=== PATIENT | female | born 1975 | race African-American/Black ===

== ENCOUNTER 2022-10-12 19:43 | Inpatient (IN) | payer MEDICAID, OTHER ==
[~2022-10-12] VITALS: Ht 167.6 cm; Wt 63.2 kg
[2022-10-12 20:21] LABS: Mean Corpuscular Hemoglobin 12.9 pg (28.0-32.0)
[2022-10-12 20:24] LABS: Hematocrit 20.3 % (36.0-46.0); Mean Corpuscular Hgb Conc. 26.2 g/dL (32.0-36.0); Mean Corpuscular Volume 49.5 fL (80.0-100.0); White Blood Cell 7.7 10^3/uL (4.4-10.8)
[2022-10-12 20:30] LABS: Hemoglobin 5.3 g/dL (12.2-16.2)
[2022-10-12 20:31] LABS: Band Neutrophils % (manual) 0; Basophils % (manual) 0 (0.0-2.0); Blast Cells 0; Metamyelocytes % 0; Myelocytes % 0; Promyelocytes % 0; Reactive Lymphocytes 0
[2022-10-12 20:45] LABS: Albumin 3.8 g/dL (3.4-5.0); Calcium 8.9 mg/dL (8.5-10.1); Potassium 3.7 mmol/L (3.5-5.1)
[2022-10-12 20:49] LABS: BUN/Creatinine Ratio 11.3; Bilirubin, Total 0.5 mg/dL (0.2-1.0); Total Protein 7.6 g/dL (6.4-8.2)
[2022-10-12] MEDS ORDERED: ONDANSETRON HCL 4 MG/2 ML VIAL IV PRN (21:45)
[2022-10-12] MEDS ORDERED: DOCUSATE SOD 100 MG CAP PO PRN (21:45)
[2022-10-12] MEDS ORDERED: ACETAMINOPHEN 325 MG TAB PO PRN (21:45)
[2022-10-12 22:40] VITALS: BP 126/69
[2022-10-12 22:45] LABS: Eosinophils % (manual) 2 (0-7); Lymphocytes % (manual) 37 (10.0-50.0); Monocytes % (manual) 6 (0-12)
[2022-10-12 22:55] VITALS: BP 117/72
[2022-10-13] VITALS (9 sets, daily range): BP systolic 99–126; BP diastolic 52–69
[2022-10-13 04:53] LABS: Basophils # (auto) 0.2 10 ^3/uL (0-0.2); Basophils % (auto) 2.6 % (0.0-2.0); Eosinophils # (auto) 0.2 10 ^3/uL (0-0.8); Eosinophils % (auto) 3.5 % (0.0-7.0); Hematocrit 25.4 % (36.0-46.0); Hemoglobin 7.3 g/dL (12.2-16.2); Lymphocytes # (auto) 2.8 10 ^3/uL (0.4-5.4); Lymphocytes % (auto) 45.1 % (10.0-50.0); Mean Corpuscular Hemoglobin 16.2 pg (28.0-32.0); Mean Corpuscular Hgb Conc. 28.5 g/dL (32.0-36.0); Mean Corpuscular Volume 56.8 fL (80.0-100.0); Monocytes # (auto) 0.3 10 ^3/uL (0-1.3); Monocytes % (auto) 4.8 % (0.0-12.0); Neutrophils # (auto) 2.8 10 ^3/uL (1.6-8.6); Nucleated Red Blood Cells % 0.6 %; Red Blood Cells 4.47 10^6/uL (4.0-5.20); White Blood Cell 6.3 10^3/uL (4.4-10.8)
[2022-10-13 04:54] LABS: Red Cell Distribution Width 32.6 % (11.8-14.3)
[2022-10-13 05:04] LABS: Albumin 3.2 g/dL (3.4-5.0); Calcium 8.9 mg/dL (8.5-10.1); Potassium 4.2 mmol/L (3.5-5.1)
[2022-10-13 05:08] LABS: BUN/Creatinine Ratio 9.6; Bilirubin, Total 1.3 mg/dL (0.2-1.0); Total Protein 6.4 g/dL (6.4-8.2)
[2022-10-14 05:00] VITALS: BP 101/44
[2022-10-14 08:30] VITALS: BP 106/56
[2022-10-14] MEDS ORDERED: FERR-7 PO (10:53)
[2022-10-14 12:30] VITALS: BP 124/53
== END 2022-10-14 15:33 | disposition home or self-care (01) | DRG 812 ==
LOC: ER 19:46 → UNDOADMIN 21:32 → TELE 21:32 → TELE-CENTR 21:55
PROVIDERS: ADMIT Nurse Practitioner Family; ATTEND Internal Medicine
PROC: 30233N1 Transfusion of Nonautologous Red Blood Cells into Peripheral Vein, Percutaneous Approach (ICD-10-PCS; principal; 2022-10-12)
DX: D50.9 Iron deficiency anemia, unspecified (principal); N92.0 Excessive and frequent menstruation with regular cycle; D75.838 Other thrombocytosis; D75.839 Thrombocytosis, unspecified; Z20.822 Contact with and (suspected) exposure to COVID-19
CPT/HCPCS: 36415; 36430; 71045; 76830; 76856; 80053; 84484; 85007; 85025; 85027; 86850; 86900; 86901; 86920; 87426; 93005; 99291; G0378